=== PATIENT | female | born 2000 | race Caucasian/White ===

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

== ENCOUNTER 2023-05-09 09:27 | Emergency (ER) | payer BC, SELFPAY ==
[2023-05-09 09:28] VITALS: BP 143/84; PULSE 96; RESP 15; TEMP 36.8; O2SAT 100; BMI 21.9
--- NOTE | 2023-05-09 09:44 | ED.VIS.GI ---
HPI HPI - GI History of Present Illness Chief Complaint: Abd Pain Narrative Narrative: 22-year-old female with chills, body aches, nausea since of last week. Patient states her girlfriend was sick just prior to this with similar symptoms and recovered. Patient states she is last vomited days ago. She describes some retrosternal discomfort/epigastric discomfort as well as diffuse abdominal cramping. No fever at home. No urinary symptoms. No vaginal symptoms. She has bowel movements every 3 days which is typical for her. She is not currently having any diarrhea. Patient states she went to the urgent care and after being examined there was concern for appendicitis. PFSH PFSH Home Medications dicyclomine 10 mg capsule 20 mg (2 x 10 mg) PO TID PRN abdominal pain #14 caps 05/09/23 [Rx Last Taken Unknown] ondansetron 4 mg disintegrating tablet 4 mg PO Q8H PRN PRN Nausea #10 tabs 05/09/23 [Rx Last Taken Unknown] sucralfate 100 mg/mL oral suspension (Carafate) 10 ml PO BID #400 mL 05/09/23 [Rx Last Taken Unknown] Allergy/AdvReac Type Severity Reaction Status Date / Time No Known Allergies Allergy Verified 05/09/23 09:29 Social History Smoking Status: Never smoker ROS ROS ED Constitutional Constitutional ED: Reports chills; Denies fever(s) or sweats Eyes Eyes: Denies blurry vision or change in vision ENT ENT ED: Denies ear pain or sore throat Cardiovascular Cardiovascular: Denies chest pain, palpitations or racing heartbeat Respiratory/Chest Respiratory/Chest: Denies cough, dyspnea or sputum Gastrointestinal Gastrointestinal: Reports abdominal pain and nausea; Denies constipation, diarrhea or vomiting Genitourinary Genitourinary ED: Denies dysuria, hematuria or urinary frequency Musculoskeletal Musculoskeletal: Reports myalgias; Denies arthralgias or neck pain Integumentary Denies abscess, Abrasions or rash Neurologic Neurologic: Denies headache(s), paresthesias or weakness Psychiatric Psychiatric: Denies anxiety, depression, suicidal ideation or suicidal thoughts Endocrine Endocrinology: Denies polydipsia or polyuria EXAM Physical Exam Const Vital Signs: 05/09/23 09:05/09/23 11:08 Temperature 98.3 F Temperature Source Temporal Pulse Rate 96 68 Respiratory Rate 15 15 Blood Pressure 143/84 H 124/77 H Blood Pressure Mean 103 92 Pulse Ox 100 98 Oxygen Delivery Method Room Air Positive well nourished General Appearance ED: NAD; Negative for pallor HEENT Reports moist mucous membranes normocephalic and atraumatic Eyes PERRL and EOMs intact bilaterally Resp normal respiratory effort Cardio regular rate and regular rhythm GI GI Narrative: Mild generalized tenderness. No focal right upper quadrant or right lower quadrant pain. No peritoneal signs. No CVA tenderness. Back/Spine no CVA tenderness Neuro CN's II-XII intact bilaterally Sensorium / Orientation: alert Psych mental status grossly normal and thought process normal Skin General Skin Exam: Negative for jaundice or pallor MDM MDM MDM Narrative Medical decision making narrative: 22-year-old female with viral symptoms. She is about 6 days into symptoms and I do not believe testing for COVID or influenza will be helpful. Vital signs are stable and she is afebrile. She complains of mostly GI complaints. Patient will be given Zofran and GI cocktail. I do not believe she needs lab work or imaging. I do not have any suspicion for appendicitis. Patient amenable to this plan. On reevaluation patient having mild headache and some cramping. She is given Bentyl and Tylenol. She will be reevaluated. On reevaluation the patient is doing well. She states her headache is better and her cramping is better. She wants to go home with some Bentyl and Zofran for home. Also give her some Carafate. Patient given return precautions. Impression: 1. Viral syndrome 2. Abdominal pain 3. Nausea Discharge Plan Triage Chief Complaint: Abd Pain ED Provider: Rudy Casas Dx/Rx/DC Orders Instructions: ED Gastroenteritis, Viral (Adult) Prescriptions: New dicyclomine 10 mg capsule 20 mg PO TID PRN (Reason: abdominal pain) Qty: 14 0RF ondansetron 4 mg tablet,disintegrating 4 mg PO Q8H PRN PRN (Reason: Nausea) Qty: 10 0RF sucralfate [Carafate] 100 mg/mL suspension 10 ml PO BID Qty: 400 0RF Stand Alone Forms: ED Work / School Excuse Primary Care Provider: Care Physician,No Primary Referrals: [facility] [Outside] - 3-5 Days Brandy Araujo MD [Non-Staff] - Disposition Disposition: Home, Self Care Discharge Date/Time: 05/09/23 11:09
[2023-05-09] MEDS: Ondansetron ODT 4 MG Tablet PO (09:54)
[2023-05-09] MEDS: Mag Hydrox/Al Hydrox/Simeth 30 ML UDC PO (09:54)
[2023-05-09] MEDS: Dicyclomine 10 MG Capsule 20 MG PO (10:43)
[2023-05-09] MEDS: Acetaminophen 500 MG Tablet 1000 MG PO (10:43)
[2023-05-09 11:08] VITALS: BP 124/77; PULSE 68; RESP 15; O2SAT 98
== END 2023-05-09 11:09 | disposition home or self-care (01) ==
PROVIDERS: Emergency Provider Student in an Organized Health Care Education/Training Program; Visit Provider Student in an Organized Health Care Education/Training Program
DX: B34.9 Viral infection, unspecified (principal); R10.9 Unspecified abdominal pain; R11.0 Nausea
CPT/HCPCS: 99284; A4216